=== PATIENT | male | born 1940 | race Caucasian/White ===

== ENCOUNTER 2018-11-20 08:41 | Emergency (ER) | payer MEDICARE, BC ==
[2018-11-20] MEDS ORDERED: HYDROmorphone 0.5 MG/0.5 ML Syringe IVPUSH ONE ×2 (09:18→09:40)
[2018-11-20] MEDS ORDERED: Diltiazem 50 MG/10 ML SDV IVPUSH ONE ×5 (09:22→11:28)
--- NOTE | 2018-11-20 09:23 | EDM.PDOC ---
ED HPI GENERAL MEDICAL PROBLEM - General Chief Complaint: Lower Extremity Injury/Pain Stated Complaint: FELL YESTERDAY - R KNEE AND HIP PAIN Time Seen by Provider: 11/20/18 09:10 Source of Information: Reports: Patient, Significant Other History Limitations: Reports: No Limitations - History of Present Illness INITIAL COMMENTS - FREE TEXT/NARRATIVE: Pt is 78 yo M h/o Afib on warfarin comes in today currently in Afib w/ RVR for continuing pain and swelling of R hip and R knee s/p fall yesterday. He denies LOC or hitting head. He states his boots got caught in the mud which made him lose his balance and fall on his knee on the icy ground. He did take some Tylenol, elevated and iced the leg with minimal relief. 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 He sees a chiropractor per which has helped him. He also saw orthopedic about 3 years ago and received cortisone injection and was told that a knee replacement may not get rid of his swelling, so they opted out of the surgery per . Current pain is 10/10 and is worse with movement and he cannot weight bear. He denies DASH, F/C, Chest pain, palpitations, N/V/D, abdominal pain or any other symptoms at this time. His HR is currently elevated in the 150's with Afib on the monitor. Last time he saw a television cable installer was 3 weeks ago and was around 70bpm w/ Afib per . PCP is Dr. Lorenza Riley. Right Knee Pain Score (Numeric/FACES): 10 - Related Data Allergies Allergy/AdvReac Type Severity Reaction Status Date / Time shellfish derived Allergy Swelling Verified 11/20/18 09:04 Sulfa (Sulfonamide Allergy Rash Verified 11/20/18 09:04 Antibiotics) chicken derived AdvReac Joint Pain Verified 11/20/18 09:04 Penicillins AdvReac Diarrhea Verified 11/20/18 09:04 mushrooms AdvReac Joint Pain Uncoded 11/20/18 09:04 Home Meds: Home Meds Aspirin [Lo-Dose Aspirin EC] 81 mg PO DAILY 11/20/18 [History] Furosemide [Lasix] 60 mg PO DAILY 11/20/18 [History] Metoprolol Tartrate 50 mg PO BID 11/20/18 [History] Multivitamin [Daily Dolores] 1 each PO DAILY 11/20/18 [History] Spironolactone [Aldactone] 25 mg PO DAILY 11/20/18 [History] Tamsulosin [Tamsulosin 24 Hr] 0.4 mg PO BEDTIME 11/20/18 [History] Warfarin Sodium [Jantoven] 5 mg PO MOWEFR 11/20/18 [History] Warfarin Sodium [Jantoven] 7.5 mg PO SUTUTHSA 11/20/18 [History] Social & Family History - Tobacco Use Smoking Status *Q: Former Smoker Years of Tobacco use: 35 Packs/Tins Daily: 2.5 Used Tobacco, but Quit: Yes Month/Year Tobacco Last Used: 1994 - Caffeine Use Caffeine Use: Reports: Coffee - Recreational Drug Use Recreational Drug Use: No Review of Systems - Review of Systems Review Of Systems: ROS reveals no pertinent complaints other than HPI. ED EXAM, GENERAL - Physical Exam Exam: See Below Exam Limited By: No Limitations General Appearance: Alert, WD/WN, Severe Distress Eye Exam: Right Eye: Foreign Body, Bilateral Eye: EOMI, Normal Inspection, PERRL Ears: Normal External Exam, Hearing Grossly Normal Nose: Normal Inspection, Normal Mucosa, No Blood Throat/Mouth: Normal Inspection, Normal Lips, Normal Teeth, Normal Gums, Normal Oropharynx, Normal Voice, No Airway Compromise Head: Atraumatic, Normocephalic Neck: Normal Inspection, Supple, Non-Tender, Full Range of Motion Respiratory/Chest: No Respiratory Distress, Lungs Clear, Normal Breath Sounds, No Accessory Muscle Use, Chest Non-Tender Cardiovascular: Normal Peripheral Pulses, No Edema, No Gallop, No JVD, No Murmur , Tachycardia, Irregularly Irregular Peripheral Pulses: 2+: Posterior Tibial (L), Posterior Tibial (R), Dorsalis Pedis (L), Dorsalis Pedis (R) GI/Abdominal: Normal Bowel Sounds, Soft, Non-Tender, No Organomegaly, No Distention, No Abnormal Bruit, No Mass Back Exam: Normal Inspection Extremities: No Pedal Edema, Normal Capillary Refill, Joint Swelling (R hip and R knee), Leg Pain (R hip and knee), Limited Range of Motion (R hip and R knee s/ p fall) Neurological: Alert, Oriented, CN II-XII Intact, Normal Cognition, Normal Gait, Normal Reflexes, No Motor/Sensory Deficits Psychiatric: Normal Affect, Normal Mood Skin Exam: Warm, Dry, Intact, Normal Color, No Rash EKG INTERPRETATION EKG Date: 11/20/18 Time: 09:29 Rhythm: A-Fib [place]: LAD-Left [place] Deviation P-Wave: Present QRS: Normal ST-T: Normal QT: Prolonged (mildly) EKG Interpretation Comments: A fib 96-175bpm. LAD -29 degrees. Decreased voltage in extremity leads. QTc mildly prolonged. Q waves III, AVF (consider old inferior TX) Course - Vital Signs Last Recorded V/S: Last Vital Signs Temp 98.4 F 11/20/18 09:04 Pulse 158 H 11/20/18 09:04 Resp 24 H 11/20/18 09:04 BP 110/72 11/20/18 09:04 Pulse Ox 97 11/20/18 09:04 - Orders/Labs/Meds Orders: Active Orders 24 hr Category Date Time Status EKG Documentation Completion [RC] ASDIRECTED Care 11/20/18 09:15 Active TYPE AND SCREEN [BBK] Stat Lab 11/20/18 09:15 Received Diltiazem 125 mg Med 11/20/18 10:30 Active Sodium Chloride 0.9% [Normal Saline] 100 ml IV TITRATE DME for Discharge [COMM] Stat Oth 11/20/18 12:02 Ordered EKG 12 Lead [EK] Stat Ther 11/20/18 09:15 Ordered Medication Orders Diltiazem HCl 125 mg/ Sodium (Chloride) 125 mls @ 15 mls/hr IV TITRATE AILIN; Protocol Labs: Laboratory Tests 11/20/18 11/20/18 11/20/18 Range/Units 09:15 09:15 09:15 WBC 11.31 H (4.23-9.07) K/mm3 RBC 4.25 L (4.63-6.08) M/mm3 Hgb 13.0 L (13.7-17.5) gm/L Hct 39.9 L (40.1-51.0) % MCV 93.9 H (79.0-92.2) fl MCH 30.6 (25.7-32.2) pg MCHC 32.6 (32.2-35.5) g/dl RDW Std Deviation 50.2 H (35.1-43.9) fL Plt Count 202 (163-337) K/mm3 MPV 11.6 (9.4-12.3) fl Neut % (Auto) 70.8 H (34.0-67.9) % Lymph % (Auto) 17.9 L (21.8-53.1) % [place] % (Auto) 10.7 (5.3-12.2) % Eos % (Auto) 0.1 L (0.8-7.0) Baso % (Auto) 0.4 (0.1-1.2) % Neut # (Auto) 8.01 H (1.78-5.38) K/mm3 Lymph # (Auto) 2.03 (1.32-3.57) K/mm3 [place] # (Auto) 1.21 H (0.30-0.82) K/mm3 Eos # (Auto) 0.01 L (0.04-0.54) K/mm3 Baso # (Auto) 0.04 (0.01-0.08) K/mm3 PT 35.0 H (9.5-12.1) SECONDS INR 3.29 Sodium 135 L (136-145) mEq/L Potassium 4.1 (3.5-5.1) mEq/L Chloride 98 (98-107) mEq/L Carbon Dioxide 26 (21-32) mEq/L Anion Gap 15.1 H (5-15) BUN 19 H (7-18) mg/dL Creatinine 1.2 (0.7-1.3) mg/dL Est Cr Clr Drug Dosing 52.37 mL/min Estimated GFR (MDRD) 59 (>60) mL/min BUN/Creatinine Ratio 15.8 (14-18) Glucose 149 H (83-115) mg/dL Calcium 9.5 (8.5-10.1) mg/dL Total Bilirubin 0.9 (0.2-1.0) mg/dL AST 23 (15-37) U/L ALT 34 (16-63) U/L Alkaline Phosphatase 104 (46-116) U/L C-Reactive Protein 5.1 H* (<1.0) mg/dL NT-Pro-B Natriuret Pep (0-450) pg/mL Total Protein 8.3 H (6.4-8.2) g/dl Albumin 3.8 (3.4-5.0) g/dl Globulin 4.5 gm/dL Albumin/Globulin Ratio 0.8 L (1-2) 11/20/18 Range/Units 09:15 WBC (4.23-9.07) K/mm3 RBC (4.63-6.08) M/mm3 Hgb (13.7-17.5) gm/L Hct (40.1-51.0) % MCV (79.0-92.2) fl MCH (25.7-32.2) pg MCHC (32.2-35.5) g/dl RDW Std Deviation (35.1-43.9) fL Plt Count (163-337) K/mm3 MPV (9.4-12.3) fl Neut % (Auto) (34.0-67.9) % Lymph % (Auto) (21.8-53.1) % [place] % (Auto) (5.3-12.2) % Eos % (Auto) (0.8-7.0) Baso % (Auto) (0.1-1.2) % Neut # (Auto) (1.78-5.38) K/mm3 Lymph # (Auto) (1.32-3.57) K/mm3 [place] # (Auto) (0.30-0.82) K/mm3 Eos # (Auto) (0.04-0.54) K/mm3 Baso # (Auto) (0.01-0.08) K/mm3 PT (9.5-12.1) SECONDS INR Sodium (136-145) mEq/L Potassium (3.5-5.1) mEq/L Chloride (98-107) mEq/L Carbon Dioxide (21-32) mEq/L Anion Gap (5-15) BUN (7-18) mg/dL Creatinine (0.7-1.3) mg/dL Est Cr Clr Drug Dosing mL/min Estimated GFR (MDRD) (>60) mL/min BUN/Creatinine Ratio (14-18) Glucose (83-115) mg/dL Calcium (8.5-10.1) mg/dL Total Bilirubin (0.2-1.0) mg/dL AST (15-37) U/L ALT (16-63) U/L Alkaline Phosphatase (46-116) U/L C-Reactive Protein (<1.0) mg/dL NT-Pro-B Natriuret Pep 776 H (0-450) pg/mL Total Protein (6.4-8.2) g/dl Albumin (3.4-5.0) g/dl Globulin gm/dL Albumin/Globulin Ratio (1-2) Meds: Medications Generic Name Dose Route Start Last Admin Trade Name Freq PRN Reason Stop Dose Admin Diltiazem HCl 125 mg/ Sodium 125 mls @ 15 mls/hr 11/20/18 10:30 Chloride IV TITRATE AILIN Protocol 15 MG/HR Discontinued Medications Generic Name Dose Route Start Last Admin Trade Name Freq PRN Reason Stop Dose Admin Diltiazem HCl 1 mg 11/20/18 09:22 11/20/18 09:27 Cardizem IVPUSH 11/20/18 09:23 Not Given ONETIME ONE Diltiazem HCl 10 mg 11/20/18 09:26 11/20/18 09:30 Cardizem IVPUSH 11/20/18 09:27 10 mg ONETIME ONE Administration Diltiazem HCl 10 mg 11/20/18 09:56 11/20/18 10:16 Cardizem IVPUSH 11/20/18 09:57 10 mg ONETIME ONE Administration Diltiazem HCl 10 mg 11/20/18 10:10 11/20/18 11:04 Cardizem IVPUSH 11/20/18 10:11 10 mg ONETIME ONE Administration Diltiazem HCl 10 mg 11/20/18 11:28 Cardizem IVPUSH 11/20/18 11:29 ONETIME ONE Hydromorphone HCl 0.5 mg 11/20/18 09:18 11/20/18 09:24 Dilaudid IVPUSH 11/20/18 09:19 0.5 mg ONETIME ONE Administration Hydromorphone HCl 0.5 mg 11/20/18 09:40 11/20/18 09:45 Dilaudid IVPUSH 11/20/18 09:41 0.5 mg ONETIME ONE Administration Diltiazem HCl 125 mg/ Sodium 125 mls @ 10 mls/hr 11/20/18 09:30 11/20/18 09: 47 Chloride IV 10 mg/hr TITRATE AILIN 10 mls/hr Administration Protocol 10 MG/HR Lorazepam 1 mg 11/20/18 10:08 11/20/18 10:13 Ativan IVPUSH 11/20/18 10:09 1 mg ONETIME ONE Administration Lorazepam 1 mg 11/20/18 10:55 11/20/18 11:02 Ativan IVPUSH 11/20/18 10:56 1 mg ONETIME ONE Administration - Re-Assessments/Exams Free Text/Narrative Re-Assessment/Exam: 11/20/18 9:15 Ordered EKG, PT/INR/PTT, Femur 2V Xray and Pelvis Xray Dilaudid 0.5mg IV push, Cardizem 10mg IV push, Cardizem drip started at 10mg/hr 11/20/18 9:40 Pt is still in extreme pain, will give another 0.5mg Dilaudid 11/20/18 9:56 HR has not come down since first Cardizem IV push 10mg, so will go ahead and give another 10mg IV push 11/20/18 10:08 Ativan 1 mg given as Dilaudid has not seemed to help much 11/20/18 10:11 HR still elevated, will give another 10mg Cardizem IV push, will increase drip to 15mg/hr 11/20/18 10:40 Femur 2V XR shows Distal femur fracture with mild displacement Pelvis XR shows nothing acute 11/20/18 11:10:45 Discussed case with on-call Orthopedic Dr. Hoover. He states he will do the case if hospitalist will admit. Will see pt later today if admitted and likely will do surgery on Friday. Hold FFP for now. 11/20/18 11:20 Discussed case with our Hospitalist, Dr. Rodriguez. There are currently no ICU beds open at this time for management of his Afib w/ RVR, therefore he will need to be transferred. 11/20/18 11:28 HR is improving, now 107-130s. Will give another 10mg IV push Cardizem. 11/20/18 11:36 Discussed case with Perry Keita. Pt has been accepted for admission by Hospitalist Dr. Street and orthopedic Dr. Ewing will see him for repair of distal femur fracture. He will be transported via ambulance. Departure - Departure Time of Disposition: 12:17 Disposition: DC/Tfer to Acute Hospital 02 Condition: Fair Clinical Impression: Atrial fibrillation with RVR, Closed fracture of right distal femur - Discharge Information *PRESCRIPTION DRUG MONITORING PROGRAM REVIEWED*: Not Applicable *COPY OF PRESCRIPTION DRUG MONITORING REPORT IN PATIENT FRANCISCO: Not Applicable Referrals: Lorenza Riley MD [Primary Care Provider] - Forms: ED Department Discharge - My Orders Last 24 Hours: My Active Orders 11/20/18 09:15 EKG Documentation Completion [RC] ASDIRECTED TYPE AND SCREEN [BBK] Stat EKG 12 Lead [EK] Stat 11/20/18 10:30 Diltiazem 125 mg Sodium Chloride 0.9% [Normal Saline] 100 ml IV TITRATE 11/20/18 12:02 DME for Discharge [COMM] Stat - Assessment/Plan Last 24 Hours: My Active Orders 11/20/18 09:15 EKG Documentation Completion [RC] ASDIRECTED TYPE AND SCREEN [BBK] Stat EKG 12 Lead [EK] Stat 11/20/18 10:30 Diltiazem 125 mg Sodium Chloride 0.9% [Normal Saline] 100 ml IV TITRATE 11/20/18 12:02 DME for Discharge [COMM] Stat
[2018-11-20] MEDS ORDERED: Diltiazem 125 MG in Sodium Chloride 0.9% 100 ML IV SCH ×2 (09:30→10:30)
[2018-11-20] MEDS ORDERED: LORazepam 2 MG/ML SDV IVPUSH ONE ×2 (10:08→10:55)
--- NOTE | 2018-11-20 10:48 | CR ---
Pelvis: AP view of the pelvis was obtained. Joint spaces within both hips are maintained. Osteopenia is seen. No fracture or other abnormality is seen. Incidental vascular calcification is noted. Impression: 1. Nonacute findings as described above. Diagnostic code #2
--- NOTE | 2018-11-20 10:48 | CR ---
Right femur: AP and lateral views of the right femur were obtained. Slightly comminuted distal femur fracture is seen at the diaphyseal metaphyseal junction. Mild displacement is seen. No articular extension is definitely appreciated on this exam. Bony structures are osteopenic. Vascular calcification is seen. Impression: 1. Distal femur fracture with mild displacement. 2. Other incidental findings. Diagnostic code #3
[2018-11-20 13:12] VITALS: BP 103/75
== END 2018-11-20 13:09 ==
LOC: JD.ED 08:41
DX: S72.401A Unspecified fracture of lower end of right femur, initial encounter for closed fracture (principal); I48.91 Unspecified atrial fibrillation; Z88.8 Allergy status to other drugs, medicaments and biological substances; Z88.2 Allergy status to sulfonamides; Z91.018 Allergy to other foods; Z87.891 Personal history of nicotine dependence; Z79.899 Other long term (current) drug therapy; W19.XXXA Unspecified fall, initial encounter
CPT/HCPCS: 36415; 72170; 73552; 80053; 83880; 85025; 85610; 86140; 86850; 86900; 86901; 93005; 96365; 96366; 96375; 96376; 99285; J1170; J2060; J3490; J7030; 93010

== ENCOUNTER 2023-03-01 13:38 | Emergency (ER) | payer MEDICARE, BC ==
[2023-03-01 14:13] LABS: BASOPHILS PERCENT AUTO 0.9 % (0.1-1.2); EOSINOPHILS PERCENT AUTO 0.9 (0.8-7.0); HEMATOCRIT 45.8 % (40.1-51.0); IMMATURE GRAN ABSOLUTE AUTO 0.02 K/mm3 (0.00-0.10); IMMATURE GRAN PERCENT AUTO 0.2 % (<=1.0); LYMPHOCYTES ABSOLUTE AUTO 2.61 K/mm3 (1.32-3.57); LYMPHOCYTES PERCENT AUTO 24.5 % (21.8-53.1); MEAN CORPUSCULAR HEMOGLOBIN 31.5 pg (25.7-32.2); MEAN CORPUSCULAR VOLUME 95.4 fl (79.0-92.2); MEAN PLATELET VOLUME 11.1 fl (9.4-12.3); MONOCYTES ABSOLUTE AUTO 0.99 K/mm3 (0.30-0.82); MONOCYTES PERCENT AUTO 9.3 % (5.3-12.2); NEUTROPHILS ABSOLUTE AUTO 6.83 K/mm3 (1.78-5.38); NEUTROPHILS PERCENT AUTO 64.2 % (34.0-67.9); PLATELET COUNT,PLT 169 K/mm3 (163-337); WHITE BLOOD CELL COUNT,WBC 10.65 K/mm3 (4.23-9.07)
[2023-03-01] MEDS ORDERED: Iopamidol 612 MG/ML 100 ML Bottle IVPUSH ONE (14:13)
[2023-03-01 14:18] LABS: HEMOGLOBIN 15.1 gm/dl (13.7-17.5)
[2023-03-01 14:30] LABS: INR 2.85; PROTHROMBIN TIME 28.2 SECONDS (9.7-12.0)
[2023-03-01 14:32] LABS: PTT,PARTIAL THROMBOPLSTIN TIME 42.6 SECONDS (21.7-31.4)
[2023-03-01 14:34] LABS: A/G RATIO 0.9 (1-2); ALANINE AMINOTRANSFERASE,ALT 40 U/L (16-63); ALBUMIN 4.1 g/dl (3.4-5.0); ALKALINE PHOSPHATASE 119 U/L (46-116); ANION GAP 13.9 (5-15); ASPARTATE AMNIOTRANSFERASE,AST 21 U/L (15-37); BILIRUBIN TOTAL 0.8 mg/dL (0.2-1.0); BLOOD UREA NITROGEN,BUN 25 mg/dL (7-18); BUN/CREATININE RATIO 17.9 (14-18); CALCIUM 9.4 mg/dL (8.5-10.1); CARBON DIOXIDE,CO2 28 mEq/L (21-32); CHLORIDE,CL 99 mEq/L (98-107); CREATININE 1.4 mg/dL (0.7-1.3); ESTIMATED GFR 51 mL/min (>60); GLUCOSE RANDOM 147 mg/dL (70-99); POTASSIUM,K 3.9 mEq/L (3.5-5.1); PROTEIN TOTAL,TP 8.9 g/dl (6.4-8.2); SODIUM,NA 137 mEq/L (136-145); TROPONIN I HIGH SENSITIVITY 5 pg/mL (<=76)
[2023-03-01 14:53] LABS: APPEARANCE,URINE CLOUDY (Clear); BILIRUBIN,URINE 3+ (Negative); COLOR,URINE RED (Yellow); GLUCOSE,URINE TRACE (Negative); KETONES,URINE 1+ (Negative); LEUKOCYTE ESTERASE,URINE 3+ (Negative); NITRITE,URINE POSITIVE (Negative); OCCULT BLOOD,URINE 3+ (Negative); PH,URINE 5.5 (5.0-8.0); PROTEIN,URINE 3+ (Negative)
[2023-03-01 15:04] LABS: BACTERIA,URINE MANY /hpf (FEW); EPITHELIAL CELLS,URINE 0-5 /hpf (0-5); MUCUS,URINE FEW /hpf (FEW); RBC,URINE >100 /hpf (0-5); WBC,URINE >100 /hpf (0-5)
[2023-03-01] MEDS ORDERED: Lidocaine 2% 11 ML Jelly Filled Syringe MUCMEM ONE (15:57)
[2023-03-01] MEDS ORDERED: Lactated Ringers 500 ML IV ONE (16:40)
[2023-03-01] MEDS ORDERED: Acetaminophen 325 MG Tab PO ONE ×2 (17:14→23:44)
[2023-03-01] MEDS ORDERED: Acetaminophen 325 MG/10.15 ML ML PO ONE (23:39)
[2023-03-02 01:46] VITALS: BP 108/79; PULSE 113
== END 2023-03-02 00:45 | disposition swing bed (61) ==
LOC: JD.ED 13:38
DX: R31.9 Hematuria, unspecified (principal); I11.0 Hypertensive heart disease with heart failure; I50.9 Heart failure, unspecified; E78.00 Pure hypercholesterolemia, unspecified; Z95.5 Presence of coronary angioplasty implant and graft; Z79.01 Long term (current) use of anticoagulants; Z88.8 Allergy status to other drugs, medicaments and biological substances; Z88.1 Allergy status to other antibiotic agents; Z88.0 Allergy status to penicillin; Z91.018 Allergy to other foods; Z91.013 Allergy to seafood; Z79.82 Long term (current) use of aspirin; Z79.899 Other long term (current) drug therapy; W19.XXXA Unspecified fall, initial encounter
CPT/HCPCS: 36415; 51702; 71260; 74177; 80053; 81001; 84484; 85025; 85610; 85730; 86850; 86900; 86901; 87086; 96360; 99285; A9270; J7120; Q9967